=== PATIENT | male | born 1995 | race Caucasian/White ===

== ENCOUNTER 2022-10-03 20:20 | Emergency (ER) | payer MEDICAID ==
[~2022-10-03] VITALS: Ht 162.6 cm; Wt 58.1 kg
[2022-10-03 20:35] VITALS: BP 126/73
--- NOTE | 2022-10-03 20:38 | NUR ---
TO LOBBY A/W BED AMBULATORY
--- NOTE | 2022-10-03 21:10 | NUR ---
Patient being evaluated by physician
[2022-10-03] MEDS ORDERED: LIDOCAINE 2% 1000 MG/50 ML VIAL INJ ONE ×2 (21:15→21:18)
--- NOTE | 2022-10-03 21:21 | NUR ---
PT TO BED #6
[2022-10-03] MEDS ORDERED: BACI-416 TP (21:57)
--- NOTE | 2022-10-03 22:00 | NUR ---
27YR OLD MALE BIB SELF C/O LACERATION TO LEFT FINGER. PT VIET[place] SPEAKING ONLY. PT IS A&OX4. NO ACTIVE BLEEDING AT THIS TIME. LACERATION TO LEFT THUMB. 5/[address] VLICHIS TO SUTURE LAC NKDA NO MED HX
--- NOTE | 2022-10-03 22:00 | NUR ---
27YR OLD MALE BIB SELF . C/O LACERATION TO LEFT DIGIT. PT A&OX4 [place] SPEAKING ONLY. NO ACTIVE BLEEDING. DR VILCHIS SUTURED AT BEDSIDE NKDA NO MED HX
[2022-10-03] MEDS ORDERED: BACITRACIN OINT 500 UNITS/GM PKT TP ONE ×2 (22:05→22:07)
--- NOTE | 2022-10-03 22:12 | NUR ---
Patient discharged with v/s stable. Written and verbal after care instructions given and explained. Patient verbalized understanding. Ambulatory with steady gait. All questions addressed prior to discharge. Advised to follow up with PMD.
--- NOTE | 2022-10-03 22:46 | NUR ---
The patient's care was reviewed and supervised by Adelaida Mccain RN.
== END 2022-10-03 22:12 | disposition home or self-care (01) ==
LOC: MED 20:20
DX: S61.012A Laceration without foreign body of left thumb without damage to nail, initial encounter (principal); X58.XXXA Exposure to other specified factors, initial encounter; Y93.89 Activity, other specified; Y92.89 Other specified places as the place of occurrence of the external cause; Y99.8 Other external cause status
CPT/HCPCS: 12002; 99283; J2001; 99282

== ENCOUNTER 2022-10-14 15:20 | Emergency (ER) | payer MEDICAID ==
[~2022-10-14] VITALS: Ht 165.1 cm; Wt 65.8 kg
[~2022-10-14 15:20] MED LIST: BACI-416 TP
[2022-10-14 15:34] VITALS: BP 115/73
[2022-10-14] MEDS: BACITRACIN OINT 500 UNITS/GM PKT TP ONE (16:54)
== END 2022-10-14 16:54 | disposition home or self-care (01) ==
LOC: MED 15:20
DX: S61.012D Laceration without foreign body of left thumb without damage to nail, subsequent encounter (principal); Z79.899 Other long term (current) drug therapy; X58.XXXD Exposure to other specified factors, subsequent encounter
CPT/HCPCS: 99282